=== PATIENT | male | born 1985 | race Caucasian/White ===

== ENCOUNTER 2017-04-10 06:02 | Emergency (ER) | payer MEDICAID ==
[~2017-04-10] VITALS: Ht 172.7 cm; Wt 77.0 kg
[2017-04-10 06:04] VITALS: BP 104/54
[2017-04-10] MEDS ORDERED: SODIUM CHLORIDE 0.9% 1,000 ML IV ONE (06:26)
[2017-04-10] MEDS ORDERED: LORAZEPAM 2MG/ML CPJ IV STA (06:26)
[2017-04-10] MEDS ORDERED: BACITRACIN ZINC OINT UDPKT TOP ONE (06:30)
[2017-04-10] MEDS ORDERED: TETANUS, DIPHTHERIA, PERTUSSIS VAC/PF 0.5ML (>7YR OLD) IM ONE (06:30)
[2017-04-10 07:24] LABS: BASOPHILS % 0.4 % (0.0-2.0); EOSINOPHILS % 1.1 % (0.0-5.0); HEMATOCRIT. 49.4 % (42.0-52.0); HEMOGLOBIN. 16.8 g/dL (14.0-18.0); LYMPHOCYTES % 20.8 % (20.0-50.0); MEAN CORPUSCULAR HEMOGLOBIN 30.6 pg (28.0-32.0); MEAN PLATELET VOLUME 7.3 fl (7.4-10.4); MONOCYTES % 6.4 % (2.0-8.0); NEUTROPHILS % 71.3 % (40.0-76.0); PLATELET 278 x1000/uL (130-400); RED BLOOD CELL COUNT 5.48 mill/uL (4.7-6.1)
[2017-04-10 07:41] LABS: AMMONIA 43 uMol/L (<32); CARBON DIOXIDE 26 mEq/L (21-32); CHLORIDE 103 mEq/L (98-107)
[2017-04-10 07:42] LABS: ETHANOL BLOOD < 10 mg/dL
[2017-04-10 07:45] LABS: TROPONIN I < 0.02 ng/mL (0.00-0.04)
[2017-04-10 07:47] LABS: PROTHROMBIN TIME 10.6 sec (9.4-11.6)
== END 2017-04-10 10:17 | disposition home or self-care (01) ==
LOC: ER 06:02
DX: S01.01XA Laceration without foreign body of scalp, initial encounter (principal); X99.9XXA Assault by unspecified sharp object, initial encounter; Y93.89 Activity, other specified; Y92.9 Unspecified place or not applicable; Z23 Encounter for immunization; F15.10 Other stimulant abuse, uncomplicated
CPT/HCPCS: 12002; 36415; 70450; 71010; 72125; 80053; 80307; 80329; 82140; 83880; 84484; 85025; 85610; 90471; 90715; 93005; 96374; 99285; G0482; J2060; Z7610; J7030